=== PATIENT | female | born 1945 | race Caucasian/White ===

== ENCOUNTER 2024-08-22 12:57 | Outpatient (RCR) | payer MEDICARE, BC, SELFPAY ==
[2024-08-15 11:00] VITALS: BP 161/58
[2024-08-15] MEDS: INJECTAFER 265 MG IV (11:19)
[2024-08-15 12:00] VITALS: BP 152/71
[2024-08-22] MEDS: INJECTAFER 265 MG IV (13:33)
[2024-08-22 13:37] VITALS: BP 129/59
[2024-08-22 14:10] VITALS: BP 148/73
== END 2024-08-25 09:07 | disposition home or self-care (01) ==
LOC: OID 12:57
PROVIDERS: ATTENDING PHYSICIAN Family Medicine
DX: D64.9 Anemia, unspecified (principal); E61.1 Iron deficiency
CPT/HCPCS: 96365; J1439

== ENCOUNTER 2025-02-10 07:18 | Day surgery (SDC) | payer OTHER, SELFPAY ==
[2025-02-10 07:48] VITALS: BMI 27.8
[2025-02-10 07:49] VITALS: BMI 27.8
[2025-02-10 07:50] VITALS: BP 145/66
[2025-02-10 09:36] VITALS: BP 102/60
[2025-02-10 09:51] VITALS: BP 132/67
== END 2025-02-10 10:35 | disposition home or self-care (01) ==
LOC: SDS 07:18
PROVIDERS: ATTENDING PHYSICIAN Internal Medicine Gastroenterology
DX: K83.8 Other specified diseases of biliary tract (principal); K86.2 Cyst of pancreas
CPT/HCPCS: 43238